=== PATIENT | male | born 1965 | race Caucasian/White ===

== ENCOUNTER 2018-08-02 07:01 | Emergency (ER) | payer OTHER ==
[2018-08-02 07:22] VITALS: BP 149/83
--- NOTE | 2018-08-02 07:31 | ED ---
Skin Complaint - HPI Summary HPI Summary: 53 yr old male with the complaint of rash back of the left leg and on the penis , red base, burning, and blisters. Onset 4-5 days ago. He has had shingles before. He does not feel ill otherwise. - History of Current Complaint Chief Complaint: UCSkin Time Seen by Provider: 08/02/18 07:24 Stated Complaint: SKIN COMPLAINT Pain Intensity: 4 - Allergy/Home Medications Allergies/Adverse Reactions: Allergies Allergy/AdvReac Type Severity Reaction Status Date / Time codeine Allergy See Comment Verified 08/02/18 07:19 [email or web address] [From Chantix] Allergy Itching Verified 08/02/18 07:19 PMH/Surg Hx/FS Hx/Imm Hx - Surgical History Surgery Procedure, Year, and Place: right shoulder surgery 2009. hernia repair Infectious Disease History: Yes Infectious Disease History: Reports: Hx Shingles - 2015 Denies: Traveled Outside the [place] in Last 30 Days - Family History Known Family History: Positive: None - Social History Occupation: Employed Full-time Alcohol Use: None Substance Use Type: Reports: None Smoking Status (MU): Heavy Every Day Tobacco Smoker Type: Cigarettes Amount Used/How Often: 1/2ppd Review of Systems Constitutional: Negative Positive: Rash All Other Systems Reviewed And Are Negative: Yes Physical Exam Triage Information Reviewed: Yes Vital Signs On Initial Exam: Initial Vitals Temp Pulse Resp BP Pulse Ox 98.4 F 74 14 149/83 99 08/02/18 07:16 08/02/18 07:16 08/02/18 07:16 08/02/18 07:16 08/02/18 07:16 Vital Signs Reviewed: Yes Appearance: Positive: Well-Appearing, No Pain Distress Skin: Positive: Other - rash with red base, in patches with blisters present in the S2 dermatome posterior left leg and on the base of penis as well. Consistent with shingles. Head/Face: Positive: Normal Head/Face Inspection Eyes: Positive: EOMI ENT: Positive: Normal ENT inspection Neck: Positive: Nontender Respiratory/Lung Sounds: Positive: Clear to Auscultation, Breath Sounds Present Cardiovascular: Positive: RRR. Negative: Murmur Abdomen Description: Positive: Nontender Musculoskeletal: Positive: Strength/ROM Intact Neurological: Positive: Sensory/Motor Intact, Alert, Oriented to Person Place, Time, CN Intact II-III Psychiatric: Positive: Normal - Ines Coma Scale Best Eye Response: 4 - Spontaneous Best Motor Response: 6 - Obeys Commands Best Verbal Response: 5 - Oriented Coma Scale Total: 15 Diagnostics - Vital Signs Vital Signs Temp Pulse Resp BP Pulse Ox 08/02/18 07:16 98.4 F 74 14 149/83 99 - Laboratory Lab Statement: Any lab studies that have been ordered have been reviewed, and results considered in the medical decision making process. Course/Dx - Course Course Of Treatment: 53 yr old with shingles. Rx with Valtrex. - Diagnoses Provider Diagnoses: Shingles, Hypertension Discharge - Sign-Out/Discharge Documenting (check all that apply): Patient Departure All imaging exams completed and their final reports reviewed: No Studies - Discharge Plan Condition: Good Disposition: HOME Prescriptions: ValACYclovir (*) [Valtrex 1 GM(*)] 1 gm PO TID #21 tab Patient Education Materials: Shingles (ED), Hypertension (ED) Referrals: Wade Banuelos DO [Primary Care Provider] - - Billing Disposition and Condition Condition: GOOD Disposition: Home
== END 2018-08-02 07:36 | disposition home or self-care (01) ==
LOC: UCCORT 07:01
DX: B02.9 Zoster without complications (principal); I10 Essential (primary) hypertension; F17.210 Nicotine dependence, cigarettes, uncomplicated; Z88.5 Allergy status to narcotic agent
CPT/HCPCS: 99202; G0463

== ENCOUNTER 2019-04-02 08:17 | Emergency (ER) | payer OTHER ==
--- NOTE | 2019-04-02 08:26 | UC ---
Back Pain HPI - HPI Summary HPI Summary: 2 wks ago had lower back pain on left side after lifting heavy object for a job. [place] instant pain but denies tingling/numbness. This AM coughed and felt a twinge of pain and spasming. of note he reports chronic lower back issues. - History of Current Complaint Chief Complaint: UCBackPain Stated Complaint: LOWER BACK PAIN Time Seen by Provider: 04/02/19 08:20 Hx Obtained From: Patient Pain Intensity: 3 Pain Scale Used: 0-10 Numeric Character: Spasmodic Aggravating Factor(s): Lifting Alleviating Factor(s): Rest - Allergies/Home Medications Allergies/Adverse Reactions: Allergies Allergy/AdvReac Type Severity Reaction Status Date / Time codeine Allergy See Comment Verified 08/02/18 07:19 [email or web address] [From Chantix] Allergy Itching Verified 08/02/18 07:19 Home Medications: Home Medications Aspirin [Aspir-Low] 81 mg PO DAILY 04/02/19 [History Confirmed 04/02/19] PMH/Surg Hx/FS Hx/Imm Hx - Additional Past Medical History Additional PMH: no chronic issues Previously Healthy: Yes - Surgical History Surgical History: Yes Surgery Procedure, Year, and Place: right shoulder surgery 2009. hernia repair - Family History Known Family History: Positive: None - Social History Alcohol Use: None Substance Use Type: None Smoking Status (MU): Heavy Every Day Tobacco Smoker Type: Cigarettes Amount Used/How Often: 1/2ppd Review of Systems All Other Systems Reviewed And Are Negative: Yes Constitutional: Negative: Fever Skin: Negative: Rash Respiratory: Positive: Negative Cardiovascular: Positive: Negative Musculoskeletal: Positive: Arthralgia - back pain, Decreased ROM - back. Negative: Myalgia Neurological: Negative: Paresthesia, Numbness, Other - denies saddle paresthesia , urinary incontinence. Physical Exam Triage Information Reviewed: Yes Appearance: Well-Appearing Vital Signs Reviewed: Yes Respiratory Exam: Normal Cardiovascular Exam: Normal Musculoskeletal: Positive: Strength Intact - at lower back FROM, No Edema, Other : - spasming on left lower back, holding himself tilted due to pain Neurological: Positive: Alert, Muscle Tone Normal. Negative: Fatigued Skin: Negative: Rashes Back Pain Course/Dx - Course Course Of Treatment: Acute lower back pain on an already injured lower back. no neuro deficits. spasmodic and will tx w/ short course of flexeril. discussed lower back protection and icy hot. istop verified: [id number]; no narcotic usage. vitals good. - Differential Dx/Diagnosis Differential Diagnosis/HQI/PQRI: Herniated Disc, Strain Provider Diagnosis: Low back strain Discharge - Sign-Out/Discharge Documenting (check all that apply): Patient Departure All imaging exams completed and their final reports reviewed: No Studies - Discharge Plan Condition: Good Disposition: HOME Prescriptions: Cyclobenzaprine (NF) [Cyclobenzaprine 5 MG (NF)] 5 mg PO TID PRN 5 Days #15 tab PRN Reason: Spasms - Back Patient Education Materials: Low Back Strain (ED) Referrals: Wade Banuelos DO [Primary Care Provider] - Additional Instructions: If not improving please follow up with pcp. - Billing Disposition and Condition Condition: GOOD Disposition: Home - Attestation Statements Provider Attestation: Per institutional requirements, I have reviewed the chart, however, I was not consulted specifically or made aware of this patient by the midlevel provider. I did not personally evaluate, interact with , or disposition this patient.
[2019-04-02 08:30] VITALS: BP 134/76
== END 2019-04-02 08:46 | disposition home or self-care (01) ==
LOC: UCCORT 08:17
DX: S39.012A Strain of muscle, fascia and tendon of lower back, initial encounter (principal); X50.0XXA Overexertion from strenuous movement or load, initial encounter; Y93.89 Activity, other specified; Y92.89 Other specified places as the place of occurrence of the external cause; Y99.0 Civilian activity done for income or pay; Z88.5 Allergy status to narcotic agent; F17.210 Nicotine dependence, cigarettes, uncomplicated
CPT/HCPCS: 99212; G0463

== ENCOUNTER 2019-11-10 07:23 | Day surgery (SDC) | payer OTHER ==
[~2019-11-10 07:23] MED LIST: Buffered Lidocaine 1% SYRIN* 1 ML/SYRINGE INTRADERM ONE; Dexamethasone IV* 4 MG/ML 1 ML (4 MG) IV SLOW PU ONE; Dexamethasone IV* 4 MG/ML 1 ML (4 MG) ONE; Famotidine IV* 10 MG/ML 2 ML (20 mg) IV ONE; Famotidine IV* 10 MG/ML 2 ML (20 mg) ONE; Lactated Ringers 1000 ML Bag* 1,000 ML IV SCH
[2019-11-10] MEDS ORDERED: ceFAZolin 2 GM PREMIX in ORs 2 GM/50 ML BAG ONE (07:30)
[2019-11-10] MEDS ORDERED: Levalbuterol 0.63MG/3ML NEB* UNIT OF USE INH ONE ×2 (08:25)
[2019-11-10] MEDS ORDERED: Midazolam* 1 MG/ML 5 ML VIAL (5 MG) ONE (08:29)
[2019-11-10] MEDS ORDERED: fentaNYL* 50 MCG/ML 5 ML VIAL (250 MCG VIAL) ONE (08:29)
[2019-11-10] MEDS ORDERED: Propofol* 10 MG/ML 20 ML BTL ONE (08:30)
[2019-11-10] MEDS ORDERED: Ondansetron INJ* 2 MG/ML VIAL ONE (08:30)
[2019-11-10] MEDS ORDERED: Lidocaine 2% PF * 5 ML VIAL ONE (08:30)
[2019-11-10] MEDS ORDERED: Ketorolac INJ* 30 MG/ML 1 ML VIAL ONE (08:30)
[2019-11-10] MEDS ORDERED: Rocuronium* 10 MG/ML VIAL ONE (08:35)
[2019-11-10] MEDS ORDERED: Bupivacaine 0.25% SDV* 30 ML ONE (08:37)
[2019-11-10] MEDS ORDERED: oxyCODONE/Acetamin 5/325 MG* TAB PO PRN (09:08)
[2019-11-10] MEDS ORDERED: fentaNYL* 50 MCG/ML 2 ML VIAL (100 MCG VIAL) IV PRN (09:08)
[2019-11-10] MEDS ORDERED: DiMENhydriNATE IV* 50 MG/ML VIAL IV PUSH PRN (09:08)
[2019-11-10] MEDS ORDERED: Naloxone* 0.4 MG/ML 1 ML VIAL IV PRN (09:08)
[2019-11-10] MEDS ORDERED: Ondansetron INJ* 2 MG/ML VIAL IV PRN (09:08)
[2019-11-10] MEDS ORDERED: Sugammadex * 500 MG/5 ML VIAL IV PUSH ONE (09:24)
[2019-11-10] MEDS ORDERED: oxyCODONE/Acetamin 5/325 MG* TAB ONE (10:50)
[2019-11-10 10:58] VITALS: BP 137/84
--- NOTE | 2019-11-10 23:54 | OP ---
DATE OF OPERATION: 11/10/19 - [facility] DATE OF : 67 SURGEON: Hayden Johnson MD. CHILD AND FAMILY SERVICES WORKER: XIAO Cabral. ANESTHESIOLOGIST: Dr. Luna. ANESTHESIA: General. 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 OPERATIVE PROCEDURE: 1. Right thumb carpometacarpal arthroplasty. 2. Distally based split flexor carpi radialis tendon transfer for thumb suspension and tendon interposition. INDICATIONS: Mr. Falcon has basal joint arthritis. He has tried some treatment for it. We talked about surgical options. He wanted to proceed with surgery. He understands there is risk associated with this. ESTIMATED BLOOD LOSS: 2 mL. COMPLICATIONS: None. FINDINGS: See above and below. DESCRIPTION OF PROCEDURE: Mr. Falcon was seen in the preoperative holding area. The correct site, side, and procedures were identified. We came back to the operating room where the arm was prepped and draped in the usual fashion and a time- out was performed. The arm was exsanguinated with the Esmarch and the tourniquet inflated. I made a 2 to 3 cm longitudinal incision over the dorsum of the CMC joint. Dissection was carried down through the subcutaneous tissue longitudinally to preserve the sensory nerves. Retractors were placed. I dissected free the radial artery that was retracted out of the way. I then raised subperiosteal and capsular flaps off the trapezium. The ligamentous attachments were released all around the periphery of the trapezium. The trapezium was then excised in piecemeal fashion in its entirety. The scaphotrapezoid joint was then visualized and that was good. I then used sequentially larger drill bits to make a bone tunnel from the dorsoradial thumb metacarpal base exiting out the volar ulnar articular surface near the insertion of the FCR tendon. The wound was then irrigated out and attention was turned to the tendon transfer. I made three 1 cm transverse incisions over the FCR tendon, the first about a centimeter proximal to the wrist flexion crease, the last 2 about 7 or 8 cm proximal to the last. The sheath was released along the entirety of the tendon. I brought the tendon up out of the wound distally and incised it longitudinally and a 26-gauge wire was passed into the tendon split. The Cornelia clamp was then used to pull the wire up into the proximal wound releasing half the tendon at the musculotendinous junction. The free tail of the tendon was then passed down into the thumb base wound with two 26-gauge wires. It was passed into the bone tunnel and back around the intact limb and then maximum tension was set as the tendon transfer was secured with 3 [id number] 3-0 Ethibond sutures. The first sewing all 3 limbs of the tendon transfer together , the last 2 sewing intact limb to intact limb. The remainder of the tendon was rolled up as a ball and secured with a 3-0 Ethibond suture. It was then placed as an interposition just proximal to the base of the metacarpal. At this point, everything was looking very good. The wound was irrigated out. The capsule was closed with 4-0 Vicryl suture. The skin was closed with 4-0 nylon suture. 0.25% Marcaine was infiltrated around all the operative sites. Wounds were dressed and a short-arm thumb spica splint with the IP joint free was applied. He was taken to the recovery room in stable condition. [id number]/[facility] #: [id number] MY[place]
== END 2019-11-10 11:15 | disposition home or self-care (01) ==
LOC: OREAST 07:23
PROVIDERS: ATTEND Orthopaedic Surgery Hand Surgery
DX: M18.11 Unilateral primary osteoarthritis of first carpometacarpal joint, right hand (principal); F41.8 Other specified anxiety disorders; F17.210 Nicotine dependence, cigarettes, uncomplicated
CPT/HCPCS: 88304; 88311; A9270-GY; J0690; J1100; J1885; J2250; J2405; J2704; J3010; J3490